=== PATIENT | female | born 1970 | race Caucasian/White ===

== ENCOUNTER 2020-06-16 14:29 | Outpatient (REF) | payer OTHER, SELFPAY | END 2020-06-16 14:30 | disposition home or self-care (01) | LOC: HO.LAB 14:29 | PROVIDERS: Visit Provider Internal Medicine | DX: Z20.822 Contact with and (suspected) exposure to COVID-19 (principal) | CPT/HCPCS: C9803; U0003; U0005 ==

== ENCOUNTER 2022-01-19 14:17 | Emergency (ER) | payer OTHER, SELFPAY ==
--- NOTE | ~2022-01-19 | XR_ITS ---
EXAMINATION: XR chest 2V CLINICAL INFORMATION: Reason for Exam flu like symtpoms c left rib pain when coughing COMPARISON: None TECHNIQUE: 2 views of the chest FINDINGS: Streaky left midlung atelectasis. No pneumothorax or pleural effusion. Normal cardiomediastinal silhouette. No displaced rib fracture however radiographs. Right upper quadrant cholecystectomy clips. XR/XR chest 2V IMPRESSION: 1. Streaky left midlung atelectasis. 2. No displaced rib fracture however radiographs have limited sensitivity and if clinical concern, CT chest could be obtained.
--- NOTE | 2022-01-19 14:58 | ED.URI ---
HPI - URI/Sore Throat General Chief Complaint: Upper Respiratory Symptoms <Joan Soto NP - Last Filed: 01/19/22 15:01> Stated Complaint: cold symptoms <Joan Soto NP - Last Filed: 01/19/22 15:01> Time Seen by Provider: 01/19/22 15:26 <Joan Soto NP - Last Filed: 01/19/22 15:01> Source: patient <RISA Baez Last Filed: 01/19/22 16:42> Mode of arrival: ambulatory <RISA Baez Last Filed: 01/19/22 16:42> Limitations: no limitations <RISA Baez Last Filed: 01/19/22 16:42> History of Present Illness HPI Narrative: 51yoF c PMHx of asthma and hypertension who is Icelandic-speaking presenting to the ER with complaints of subjective fevers, chills, fatigue, malaise, headaches, sore throat, nasal congestion/rhinorrhea, productive cough with yellow/green color sputum with intermittent blood streaked sputum and left-sided rib cage pain only when she is coughing that started on January 16 and continues to worsen. She denies any recent travel or sick contacts that she is aware of. She denies any measured fevers, dizziness, neck pain/stiffness, ear pain, chest pain or shortness of breath, dyspnea on exertion, orthopnea, palpitations, nausea/vomiting/diarrhea constipation, black or bloody stools, lower extremity edema or calf tenderness, rashes, abdominal pain, back pain, flank pain, dysuria, hematuria, abnormal vaginal discharge or any other symptoms complaints or concerns at this time. <RISA Baez - Last Filed: 01/19/22 16:42> MD elicited complaint: fever, cough, sore throat, rhinorrhea and nasal congestion <RISA Baez Last Filed: 01/19/22 16:42> Onset (ago): day(s) (3) <RISA Baez Last Filed: 01/19/22 16:42> Consistency: constant and progressively worsening <RISA Baez Last Filed: 01/19/22 16:42> Severity: moderate <RISA Baez Last Filed: 01/19/22 16:42> Description of mucous: clear, watery, yellow, green and other (Intermittent blood streaked small amount) <RISA Baez Last Filed: 01/19/22 16:42> Able to tolerate fluids by mouth: Yes <RISA Baez Last Filed: 01/19/22 16:42> Exacerbating factors: swallowing and deep breaths <RISA Baez Last Filed: 01/19/22 16:42> Relieving factors: nothing <RISA Baez Last Filed: 01/19/22 16:42> Associated symptoms: fever, chills, myalgias, diaphoresis, headache, rhinorrhea, nasal congestion, sore throat and cough <RISA Baez Last Filed: 01/19/22 16:42> Treatments prior to arrival: other (She has been taking [id number] cough medicine along with Motrin Tylenol) <RISA Baez Last Filed: 01/19/22 16:42> Related Data Home Medications: Previous Rx's Medication Instructions Recorded albuterol sulfate 90 mcg/actuation 1 inh inhalation QID PRN shortness 01/19/22 aerosol inhaler of breath or wheezing #8.5 grams nirmatrelvir 300 mg (150 mg See Rx Instructions PO .COMPLEX 01/19/22 x2)-ritonavir 100 mg tablet,dose #15 ea pack(EUA) (Paxlovid) <GERTRUDE Davies Last Filed: 01/19/22 15:01> Allergies/Adverse Reactions: Allergies Allergy/AdvReac Type Severity Reaction Status Date / Time codeine Allergy Intermediate Unknown Verified 01/19/22 14:59 morphine Allergy Intermediate Unknown Verified 01/19/22 14:59 <Joan Soto NP - Last Filed: 01/19/22 15:01> Review of Systems Review of Systems: Constitutional : + subjective fevers/chills/fatigue/malaise, No Weight loss, No Night Sweats ENT/Mouth : + nasal congestion/rhinorrhea/sore throat, No Hearing loss, No Sinus Pain, No Hoarseness, No Swallowing Difficulty Eyes: No Eye Pain, No Swelling, No Redness, No Foreign Body, No Discharge, No Vision Changes Cardiovascular : No Chest Pain, No SOB, No Dyspnea on Exertion, No Orthopnea, No Edema, No Palpitations Respiratory : + Cough, + Sputum, No Wheezing, No Smoke Exposure, No Dyspnea Gastrointestinal : No Nausea, No Vomiting, No Diarrhea, No Constipation, No abdominal Pain, No Hematochezia, No Melena Genitourinary : no irregular bleeding, No Dysuria, No Urinary Frequency, No Hematuria, No Urinary Incontinence, No Urgency, No Flank Pain, No Urinary Flow Changes, No Hesitancy Musculoskeletal : No joint pain, + Myalgias, No Joint Swelling Skin : No Skin Lesions, No rash Neuro : No Weakness, No Numbness, No Paresthesias, No Loss of Consciousness, No Dizziness, No Headache Psych : No Anxiety/Panic, No Depression, No SI/HI/AH/VH, No Social Issues, Heme/Lymph: No Bruising, No Bleeding,No Lymphadenopathy Endocrine : No Polyuria, No Polydipsia, No Temperature Intolerance <RISA Baez - Last Filed: 01/19/22 16:42> Yes all other systems are reviewed and are negative <RISA Baez - Last Filed: 01/19/22 16:42> [facility] Past Medical History Attestation statement: The following information was validated with the patient. <RISA Baez - Last Filed: 01/19/22 16:42> Source: old records reviewed and nursing notes reviewed <RISA Baez - Last Filed: 01/19/22 16:42> Social History Social History: Social History Advance Directives: No Advance Directives Information Provided: No <Joan Soto NP - Last Filed: 01/19/22 15:01> Physical Exam Vital Signs: Vital Signs: Last Vital Signs Temp 98.4 F 01/19/22 14:59 Pulse 97 01/19/22 14:59 Resp 24 H 01/19/22 14:59 BP 141/86 H 01/19/22 14:59 Pulse Ox 97 01/19/22 14:59 O2 Del Method 01/19/22 14:59 BMI result Body Mass Index 37.2 <Joan Soto NP - Last Filed: 01/19/22 15:01> Vital Signs: Last Vital Signs Temp 98.4 F 01/19/22 14:59 Pulse 97 01/19/22 14:59 Resp 24 H 01/19/22 14:59 BP 141/86 H 01/19/22 14:59 Pulse Ox 97 01/19/22 14:59 O2 Del Method 01/19/22 14:59 BMI result Body Mass Index 37.2 <RISA Baez - Last Filed: 01/19/22 16:42> Course Course Course Narrative: This is a rapid medical exam. Deferred additional HPI, ROS and PE to primary provider. 51 yo female here with headache, cough, fever, body aches x 2 days. Will check flu, covid testing. VSS <Joan Soto NP - Last Filed: 01/19/22 15:01> Reevaluation(s) Reevaluation #1: 51-year-old female with a past medical history of hypertension presenting to the ED with URI symptoms for the past 3 days worse today. Denies recent travel or sick contacts. Is vaccinated to COVID. Not vaccinated to influenza. On exam patient is alert and oriented x3. Not in any acute distress. Lungs clear to auscultation although patient reporting pain to the left rib cage when she is taking a deep breath or coughing. She denies any chest pain. She denies any abdominal pain. Abdomen is soft nontender. No lower extremity edema or calf tenderness noted. She did test positive for COVID. She is negative for influenza. I did order chest x-ray. If chest x-ray is negative patient will be discharged with symptomatic treatment. I did offer her Paxlovid and patient is interested in this medication. I gave her a fact she about Paxlovid and explained to her that she will have up until 5 days to start this medication. There is no medication interactions with the medication she is currently on. Otherwise patient will be discharged with instructions to self isolate per CDC guidelines and to return if any new or worsening symptoms. Patient with family at bedside understand agree this plan. <RISA Baez - Last Filed: 01/19/22 16:42> Time: 16:04 <RISA Baez - Last Filed: 01/19/22 16:42> Reevaluation #2: Chest x-ray revealed streaky left mid lung atelectasis otherwise no other acute processes noted. Therefore at this time will DC home with instructions return if any new worsening symptoms and to self isolate per CDC guidelines. Patient understands agrees with this plan. <RISA Baez - Last Filed: 01/19/22 16:42> Time: 16:41 <RISA Baez - Last Filed: 01/19/22 16:42> MDM - URI/Sore Throat Medical Records Attestation: I reviewed the patient's medical records. <RISA Baez - Last Filed: 01/19/22 16:42> Lab Data Attestation: I reviewed the patient's lab results. <RISA Baez - Last Filed: 01/19/22 16:42> Labs: Lab Results 01/19/22 01/19/22 Range/Units 15:18 15:18 COVID-19 ([facility]ON) Positive A (Negative) COVID-19 Clin Com See Note Influenza Type A ([facility]) Negative (Negative) Influenza Type B (AARON) Negative (Negative) Influenza A & B Note See Note <Joan Soto NP - Last Filed: 01/19/22 15:01> Lab Results 01/19/22 01/19/22 Range/Units 15:18 15:18 COVID-19 (BRANDON) Positive A (Negative) COVID-19 Clin Com See Note Influenza Type A (AARON) Negative (Negative) Influenza Type B (AARON) Negative (Negative) Influenza A & B Note See Note <RISA Baez - Last Filed: 01/19/22 16:42> Imaging Data Chest x-ray: Attestation: I personally reviewed and interpreted this imaging study as follows: <RISA Baez - Last Filed: 01/19/22 16:42> Discharge Plan Discharge Clinical Impression: COVID-19 <Joan Soto NP - Last Filed: 01/19/22 15:01> Patient Disposition: Home, Self-Care <Joan Soto NP - Last Filed: 01/19/22 15:01> Instructions: COVID-19 (Coronavirus Disease 2019) (ED) <Joan Soto NP - Last Filed: 01/19/22 15:01> Prescriptions: New albuterol sulfate 90 mcg/actuation HFA aerosol inhaler 1 inh inhalation QID PRN (Reason: shortness of breath or wheezing) Qty: 8.5 0RF Paxlovid (EUA) 300 mg (150 mg x 2)-100 mg tablets,dose pack See Rx Instructions PO .COMPLEX Qty: 15 0RF Rx Instructions: take TWO 150 mg tablets of nirmatrelvir with ONE 100 mg tablet of ritonavir twice daily for 5 days. Dip 15 pills <Joan Soto NP - Last Filed: 01/19/22 15:01> Referrals: Physician,Unknown J [Primary Care Provider] - 5 days (your pcp) <Joan Soto NP - Last Filed: 01/19/22 15:01> Stand Alone Forms: Work/School Release <Joan Soto NP - Last Filed: 01/19/22 15:01> Print Language: Icelandic <Joan Soto NP - Last Filed: 01/19/22 15:01>
[2022-01-19 14:59] VITALS: BP 141/86; PULSE 97; RESP 24; TEMP 36.9; O2SAT 97; BMI 37.2
[2022-01-19 15:43] LABS: IDNOW Serial# 55D5AD1C; IDNOW Serial# 9DB6401D; Influenza A Negative (Negative); Influenza B2 Negative (Negative)
[2022-01-19 15:44] LABS: COVID-19 Test Positive (Negative)
== END 2022-01-19 16:53 | disposition home or self-care (01) ==
PROVIDERS: Nurse Practitioner Family; Emergency Provider Emergency Medicine
DX: U07.1 COVID-19 (principal); I10 Essential (primary) hypertension; J45.909 Unspecified asthma, uncomplicated
CPT/HCPCS: 71046; 87502; 87635; 99283

== ENCOUNTER 2022-08-08 13:20 | Emergency (ER) | payer OTHER, SELFPAY ==
--- NOTE | ~2022-08-08 | US_ITS ---
EXAMINATION: US ABDOMEN LIMITED CLINICAL INFORMATION: Right upper quadrant pain. Vomiting. Elevated LFT. COMPARISON: None available. TECHNIQUE: Real-time imaging of the right upper quadrant abdominal viscera. FINDINGS: PANCREAS: The head and body of the pancreas is unremarkable. The tail of the pancreas is obscured by bowel gas LIVER: Normal. The liver is normal in size. The liver contour is normal. Parenchymal echogenicity is normal. No focal hepatic lesion. There is no intrahepatic biliary duct dilatation seen. GALLBLADDER: Normal. The gallbladder is physiologically distended without evidence of stones, sludge, polyps, wall thickening or pericholecystic fluid. COMMON BILE DUCT: Normal in caliber measuring 0.7 cm in diameter. RIGHT KIDNEY: Normal. No hydronephrosis. No renal calculi or focal parenchymal lesions. The kidney measures 10.4 cm in maximum dimension. FREE FLUID: None. US/US abdomen limited IMPRESSION: Normal ultrasound right upper quadrant.
--- NOTE | ~2022-08-08 | MR_ITS ---
EXAMINATION: MR BRAIN WITHOUT CONTRAST CLINICAL INFORMATION: dizziness, vomiting, sudden onset 08/07 COMPARISON: None TECHNIQUE: Multiplanar multisequence MR imaging of the brain was obtained without intravenous contrast. FINDINGS: There is no acute infarct on diffusion-weighted imaging. There is no intracranial hemorrhage on iron-sensitive imaging. No extra-axial collection or mass effect/herniation. There are several scattered foci of nonspecific supratentorial white matter T2/FLAIR signal abnormality. No hydrocephalus. The ventricles are normal in morphology and size. The major flow voids at the skull base are preserved. Partially empty sella. The cerebellar tonsils are normally positioned. The craniocervical junction is normal. Marrow signal is within normal limits. The visualized soft tissues are without significant abnormality. No signal abnormality within the paranasal sinuses or within the mastoid air cells. MR/MR head/brain wo con IMPRESSION: No acute infarct or other acute intracranial abnormality
[2022-08-08 13:27] VITALS: BP 183/92; PULSE 74; RESP 18; TEMP 36.7; O2SAT 98; BMI 36.3
--- NOTE | 2022-08-08 13:28 | ED.GENADULT ---
HPI - General Adult General Chief complaint: General Medical Stated complaint: nausea, headache Time Seen by Provider: 08/08/22 14:45 Source: patient and other (partner) Mode of arrival: ambulatory Limitations: no limitations History of Present Illness HPI narrative: 52 yo female with hx of HTN, GERD, repaired heart murmur as a child, presented to [facility] 08/07 at 2am with sudden onset n/v and dizziness with mild epigastric discomfort - treated with fluids, meclizine and had some improvement. Her dizziness seems positional in nature. She did fell a little better had negative CTA of head and neck and was sent home with scopolamine patch - she notes she is still dizzy it is better if she looks straight she has mild headache but persistent n/v and cannot eat. She denies prior falls or neck manipulation preceding this. She has no fevers. This happened one other time 4 months ago and it resolved. Has had a mild cough recently but no other URI symptoms. MD complaint: intermittent dizziness and then nausea and vomiting Onset (ago): day(s) (08/07 2am) Location: head Radiation: non-radiation Severity: moderate Relieving factors: rest Exacerbating factors: movement Associated symptoms: nausea/vomiting and other (headache) Treatments prior to arrival: none Related Data Previous Rx's Medication Instructions Recorded albuterol sulfate 90 mcg/actuation 1 inh inhalation QID PRN shortness 01/19/22 aerosol inhaler of breath or wheezing #8.5 grams nirmatrelvir 300 mg (150 mg See Rx Instructions PO .COMPLEX 01/19/22 x2)-ritonavir 100 mg tablet,dose #15 ea pack (Paxlovid) meclizine 25 mg tablet 25 mg PO TID PRN dizziness #30 tabs 08/08/22 ondansetron 4 mg disintegrating 4 mg PO Q8H PRN nausea and 08/08/22 tablet vomiting #20 tabs Allergies Allergy/AdvReac Type Severity Reaction Status Date / Time codeine Allergy Intermediate Unknown Verified 01/19/22 14:59 morphine Allergy Intermediate Unknown Verified 01/19/22 14:59 Review of Systems Review of Systems: Constitutional : No Fever, No Chills, No Fatigue ENT/Mouth : No sore throat, No Rhinorrhea Eyes: No Eye Pain, No Swelling, No Redness Cardiovascular : No Chest Pain, No SOB, No Dyspnea on Exertion Respiratory : No Cough, No Sputum Gastrointestinal : pos Nausea, pos Vomiting, No Diarrhea, No abdominal Pain Genitourinary : No Dysuria, No Urinary Frequency, No Hematuria, Musculoskeletal : No joint pain, No Myalgias, No Joint Swelling Skin : No Skin Lesions, No rash Neuro : No Weakness, No Numbness, pos Dizziness, positive Headache Psych : No Anxiety/Panic, No Depression All other systems reviewed and are negative [facility] Past Medical History Attestation statement: The following information was validated with the patient. Medical History (Updated 08/08/22 @ 17:54 by Kassie Gresham DO) GERD (gastroesophageal reflux disease) HTN (hypertension) Surgical History (Updated 08/08/22 @ 15:31 by Renae Moser) History of appendectomy Social History Social History (Updated 08/08/22 @ 15:10 by Kassie Gresham DO) Alcohol intake: never Patient Tobacco Use Status: Never used Tobacco Smoked in Last 30 Days: Yes Use of substances other than those prescribed or required for medical reasons: No Advance Directives: No Advance Directives Information Provided: Yes Physical Exam ED Vital Signs: Vital Signs - 24 hr 08/08/22 13:27 08/08/22 15:23 Temperature 98.1 F 98 F Pulse Rate 74 60 Respiratory Rate 18 18 Blood Pressure 183/92 H 152/90 H Pulse Oximetry 98 99 Oxygen Delivery Method Room Air Room Air BMI result Body Mass Index 36.3 Appearance: Alert. Oriented X3. No acute distress. Eyes: Pupils equal, round and reactive to light. no nystagmus ENT: Pharynx normal. Neck: Normal inspection. Neck supple. CVS: Normal heart rate and rhythm. Pulses normal. Respiratory: No respiratory distress. Breath sounds normal. Abdomen: Soft and nontender. Skin: Skin warm and dry. Normal skin color. Normal skin turgor. Extremities: No lower extremity edema. No calf ttp Neuro: Oriented X 3. No motor deficit. No sensory deficit. no drift, notes dizziness is resolved unless she turns her head to the left or right Course Course Course Narrative: This is an RME: Additional HPI, ROS, PE not included below will be deferred to primary provider. 58-[id number]-[id number]-speaking female, hx of asthma and hypertension, presenting to the ER for evaluation of cold sweats, nausea, and vomiting. She is unable to tolerate PO. Was seen at [facility] for these symptoms and was told that she was dehydrated. Plan: Basic bloodwork, attempt to get records from [facility] Reevaluation(s) Reevaluation #1: MRI for brain to rule out posterior stroke MRI labs EKG all negative stable for DC Medications Administered Discontinued Medications Generic Name Dose Route Start Last Admin Trade Name Charisse PRN Reason Stop Dose Admin Lorazepam 1 mg 08/08/22 16:24 08/08/22 16:45 Lorazepam 2 Mg/Ml Vial IVPUSH 08/08/22 16:25 1 mg STAT STA Administration Meclizine HCl 25 mg 08/08/22 14:58 08/08/22 15:21 Meclizine Hcl 25 Mg Tablet PO 08/08/22 14:59 25 mg ONCE ONE Administration Ondansetron HCl 4 mg 08/08/22 14:58 08/08/22 15:21 Ondansetron Odt 4 Mg Tab.Rapdis TRANSLINGU 08/08/22 14:59 4 mg ONCE ONE Administration Medical Decision Making Medical Decision Making [facility] Narrative: 52 yo female with hx of HTN, GERD here with c/o persistent dizziness that is positional no other neuro findings does have n/v was sent home with scopolamine which didn't help. At this time she has no CP/SOB but has some mild epigsatric and RUQ pain - labs and US ordered. Her symptoms seem more peripheral given they are worse with head turning and not present looking straight ahead - she has no nystagmus though - but turning head reproduces symptoms, sitting still she has no dizziness - seems more vertiginous compared to posterior stroke. Differential Diagnosis Differential Diagnoses: The differential diagnosis associated with the presentation includes vertigo, biliary colic, dehydration, posterior stroke - recent negative CTA head and neck Lab Data [facility] Lab Attestation statement: I reviewed the patient's lab results. 08/08/22 13:54 08/08/22 13:54 Labs: Lab Results 08/08/22 08/08/22 08/08/22 Range/Units 13:53 13:54 13:54 WBC 7.8 (4.8-10.8) X10*3/uL RBC 4.50 (4.20-5.50) X10*6/uL Hgb 13.8 (12.0-16.0) g/dl Hct 42.6 (37.0-47.0) % MCV 94.7 (80.0-98.0) fL MCH 30.7 (27.0-33.0) pg MCHC 32.4 (31.0-35.0) g/dl RDW 14.3 (11.0-16.0) % Plt Count 264 (160-400) X10*3/uL MPV 10.4 (9.4-12.3) fL Immature Gran % (Auto) Cancelled Neut % (Auto) Cancelled Lymph % (Auto) Cancelled [place] % (Auto) Cancelled Eos % (Auto) Cancelled Baso % (Auto) Cancelled Lymph # (Auto) Cancelled [place] # (Auto) Cancelled Eos # (Auto) Cancelled Baso # (Auto) Cancelled Abs Immat Gran (auto) Cancelled Absolute Neuts (auto) Cancelled Absolute Nucleated RBC 0.000 (0.0-0.012) X10*3/uL Nucleated RBC % (auto) 0.0 (0.0-0.2) /100WBC Neutrophils % (Manual) 80 H (45-73) % Band Neutrophils % 0 L (3-5) % Lymphocytes % (Manual) 20 (20-40) % Abs Neuts (Manual) 6.2 (2.0-8.3) X10*3/uL Lymphocytes # (Manual) 1.6 (1.2-4.9) X10*3/uL Platelet Estimate NORMAL (NORMAL) Plt Morphology Comment NORMAL RBC Morphology NORMAL Sodium (135-145) mmol/L Potassium (3.3-5.1) mmol/L Chloride (96-108) mmol/L Carbon Dioxide (22-29) mmol/L Anion Gap (12-20) BUN (9-16) mg/dL Creatinine (0.5-1.4) mg/dL Estim Creat Clear Calc Estimated GFR Random Glucose (60-115) mg/dL Calcium (8.4-10.2) mg/dL Magnesium 1.9 (1.6-2.6) mg/dL Total Bilirubin 0.6 (0.0-1.0) mg/dL Direct Bilirubin 0.2 (0.0-0.5) mg/dL AST 25 (5-31) U/L ALT 41 H (0-31) U/L Alkaline Phosphatase 163 H (39-117) U/L Troponin I High Sens (<3.5-17.0) ng/L Total Protein 7.7 (6.5-8.0) g/dL Albumin 4.5 (3.5-5.0) g/dL Lipase 26 (8-78) U/L COVID-19 ([facility]ON) Negative (Negative) COVID-19 Clin Com See Note 08/08/22 08/08/22 Range/Units 13:54 13:54 WBC (4.8-10.8) X10*3/uL RBC (4.20-5.50) X10*6/uL Hgb (12.0-16.0) g/dl Hct (37.0-47.0) % MCV (80.0-98.0) fL MCH (27.0-33.0) pg MCHC (31.0-35.0) g/dl RDW (11.0-16.0) % Plt Count (160-400) X10*3/uL MPV (9.4-12.3) fL Immature Gran % (Auto) Neut % (Auto) Lymph % (Auto) [place] % (Auto) Eos % (Auto) Baso % (Auto) Lymph # (Auto) [place] # (Auto) Eos # (Auto) Baso # (Auto) Abs Immat Gran (auto) Absolute Neuts (auto) Absolute Nucleated RBC (0.0-0.012) X10*3/uL Nucleated RBC % (auto) (0.0-0.2) /100WBC Neutrophils % (Manual) (45-73) % Band Neutrophils % (3-5) % Lymphocytes % (Manual) (20-40) % Abs Neuts (Manual) (2.0-8.3) X10*3/uL Lymphocytes # (Manual) (1.2-4.9) X10*3/uL Platelet Estimate (NORMAL) Plt Morphology Comment RBC Morphology Sodium 141 (135-145) mmol/L Potassium 4.0 (3.3-5.1) mmol/L Chloride 105 (96-108) mmol/L Carbon Dioxide 30 H (22-29) mmol/L Anion Gap 10 L (12-20) BUN 12 (9-16) mg/dL Creatinine 0.67 (0.5-1.4) mg/dL Estim Creat Clear Calc 106.4 Estimated GFR > 60 Random Glucose 104 (60-115) mg/dL Calcium 9.8 (8.4-10.2) mg/dL Magnesium (1.6-2.6) mg/dL Total Bilirubin (0.0-1.0) mg/dL Direct Bilirubin (0.0-0.5) mg/dL AST (5-31) U/L ALT (0-31) U/L Alkaline Phosphatase (39-117) U/L Troponin I High Sens 6.8 (<3.5-17.0) ng/L Total Protein (6.5-8.0) g/dL Albumin (3.5-5.0) g/dL Lipase (8-78) U/L COVID-19 ([facility]ON) (Negative) COVID-19 Clin Com Independent Interpretation I performed an independent interpretation of an: EKG, Ultrasound (normal appearing US ) and CT Scan (brain MRI - negative no acute findings) Interpretation: Rate: 59 Rhythm: sinus bradycardia [place]: normal Normal P waves. Normal VENT[place]A. Normal QRS complex. ST T wave : normal no OSWALD, no OSWALD depression qTC: normal prior studies: no acute ischemia The study has been interpreted contemporaneously by me. . Radiology Impression Discussion of test interpretation with radiology: I have reviewed the radiologist's reading. Independent Historian Clinical information obtained from an independent historian. History obtained from or confirmed by: Spouse External Record Review External record reviewed: Outpatient record ([facility] ED records and CTA reviewed) Prescription Management I considered prescription management with: Other (zofran and meclizine) Discharge Plan Discharge Clinical Impression: Dizziness Patient Disposition: Home, Self-Care Instructions: Dizziness (ED) Additional Instructions: return to ED for any worsening symptoms or concerns ultrasound normal, labs reassuring, EKG normal, MRI of brain no stroke at this time suspect vertigo please call your doctor about getting physical therapy for your dizziness there is treatment return for worsening symptoms, chest pain, diff breathing, numbness, weakness or any other concerns. Prescriptions: New meclizine 25 mg tablet 25 mg PO TID PRN (Reason: dizziness) Qty: 30 0RF ondansetron 4 mg tablet,disintegrating 4 mg PO Q8H PRN (Reason: nausea and vomiting) Qty: 20 0RF No Action albuterol sulfate 90 mcg/actuation HFA aerosol inhaler 1 inh inhalation QID PRN (Reason: shortness of breath or wheezing) Qty: 8.5 0RF Paxlovid 300 mg (150 mg x 2)-100 mg tablets,dose pack See Rx Instructions PO .COMPLEX Qty: 15 0RF Rx Instructions: take TWO 150 mg tablets of nirmatrelvir with ONE 100 mg tablet of ritonavir twice daily for 5 days. Dip 15 pills
[2022-08-08 14:05] LABS: Hematocrit 42.6 % (37.0-47.0); Hemoglobin 13.8 g/dl (12.0-16.0); Mean Corpuscular HGB Conc 32.4 g/dl (31.0-35.0); Mean Corpuscular Hemoglobin 30.7 pg (27.0-33.0); Mean Corpuscular Volume 94.7 fL (80.0-98.0); Mean Platelet Volume 10.4 fL (9.4-12.3); Platelet Count 264 X10*3/uL (160-400); Red Cell Distribution Width 14.3 % (11.0-16.0)
[2022-08-08 14:06] LABS: WBC ABN SCTR FOR CBC 1
[2022-08-08 14:28] LABS: Band Neutrophils Percent 0 % (3-5); Lymphocytes Percent Manual 20 % (20-40); Neutrophils Percent Manual 80 % (45-73); Platelet Estimate NORMAL (NORMAL); Platelet Morphology Comment NORMAL; RBC Morphology NORMAL
[2022-08-08 14:29] LABS: Lymphocytes Absolute Manual 1.6 X10*3/uL (1.2-4.9); Neutrophils Absolute Manual 6.2 X10*3/uL (2.0-8.3); White Blood Count 7.8 X10*3/uL (4.8-10.8)
[2022-08-08 14:33] LABS: Anion Gap 10 (12-20); Blood Urea Nitrogen 12 mg/dL (9-16); Calcium 9.8 mg/dL (8.4-10.2); Carbon Dioxide 30 mmol/L (22-29); Chloride 105 mmol/L (96-108); Creatinine Clr Calc Pharmacy 106.4; Estimated Glomerular Filt Rate > 60; Glucose Random 104 mg/dL (60-115); Sodium 141 mmol/L (135-145)
[2022-08-08 14:34] LABS: Alanine Aminotransferase 41 U/L (0-31); Albumin Level 4.5 g/dL (3.5-5.0); Alkaline Phosphatase 163 U/L (39-117); Aspartate Amino Transferase 25 U/L (5-31); Bilirubin Direct 0.2 mg/dL (0.0-0.5); Bilirubin Total 0.6 mg/dL (0.0-1.0); Lipase 26 U/L (8-78); Magnesium 1.9 mg/dL (1.6-2.6); Total Protein 7.7 g/dL (6.5-8.0)
--- NOTE | 2022-08-08 14:58 | ECG_ITS ---
Test Reason : NAUSEA Blood Pressure : / mmHG Vent. Rate : 059 BPM Atrial Rate : 059 BPM P-R Int : 188 ms QRS Dur : 074 ms QT Int : 430 ms P-R-T Axes : 022 039 041 degrees QTc Int : 425 ms Sinus bradycardia Otherwise normal ECG No previous ECGs available Referred By: Kassie Gresham Electronically Signed By:NICK LUNA
[2022-08-08 15:03] LABS: COVID-19 Test Negative (Negative); IDNOW Serial# BCCEAD1C
[2022-08-08] MEDS: Ondansetron ODT 4 MG TAB.RAPDIS TRANSLINGU (15:21)
[2022-08-08] MEDS: Meclizine HCl 25 MG TABLET PO (15:21)
[2022-08-08 15:23] VITALS: BP 152/90; PULSE 60; RESP 18; TEMP 36.6; O2SAT 99
[2022-08-08 16:20] LABS: Troponin-I High Sensitivity 6.8 ng/L (<3.5-17.0)
--- NOTE | 2022-08-08 16:28 | PC.NURSE ---
MRI screening form completed and faxed, pt requesting medication to help with anxiety prior to scan, provider notified.
[2022-08-08] MEDS: LORazepam 2 MG/ML VIAL 1 MG IVPUSH (16:45)
--- NOTE | 2022-08-08 17:24 | PC.NURSE ---
pt to MRI s/p receiving ativan iv- 22g placed L forearm, CDI- tolerated well. for anxiety pre-med as pt stated she feels claustrophobic for enclosed test spaces. aox4.
== END 2022-08-08 18:17 | disposition home or self-care (01) ==
PROVIDERS: Physician Assistant Medical; Emergency Provider Emergency Medicine
DX: R42 Dizziness and giddiness (principal); R11.2 Nausea with vomiting, unspecified; R00.1 Bradycardia, unspecified; Z20.822 Contact with and (suspected) exposure to COVID-19; I10 Essential (primary) hypertension
CPT/HCPCS: 36415; 70551; 76705; 80048; 80076; 83690; 83735; 84484; 85007; 85027; 87635; 93005; 96374; 99284; 99285; J2060

== ENCOUNTER 2023-11-26 18:27 | Emergency (ER) | payer OTHER, SELFPAY ==
--- NOTE | ~2023-11-26 | XR_ITS ---
EXAMINATION: XR ABDOMEN KUB CLINICAL INDICATION: Abdominal pain COMPARISON: None available. TECHNIQUE: AP view of the abdomen. FINDINGS: Hepatomegaly. Cholecystectomy clips in the right upper quadrant. Moderate left colonic stool burden. Nonobstructive bowel gas pattern. Amorphous calcifications in the right lower quadrant, likely part of stool. No large pneumoperitoneum. XR/XR KUB IMPRESSION: Hepatomegaly. Nonobstructive bowel gas pattern. Electronically signed by: Brandt Lau DO 11/27/2023 12:16 AM EDT
[2023-11-26 18:49] VITALS: BP 154/80; PULSE 83; RESP 16; TEMP 36.1; O2SAT 99; BMI 42.1
--- NOTE | 2023-11-26 19:17 | ED.GENADULT ---
HPI - General Adult General Chief complaint: Urogenital-Female Stated complaint: abd pain Time Seen by Provider: 11/26/23 22:41 Source: patient Limitations: no limitations History of Present Illness ED Provider: Mary Álvarez PA-C HPI narrative: 53-year-old female with a history of morbid obesity, vertigo and asthma presents with abdominal pain x3 days. Patient was seen at [facility] for same distribution of pain, she was told she may be passing a kidney stone. The pain is over left flank and wraps around to left mid abdomen. Patient states her symptoms have progressed, she now has abdominal distention and constipation. Patient had a very minimal bowel movement today, her stool was hard. Denies nausea, vomiting, inability to pass flatus or fever. Denies dysuria or hematuria. Related Data Previous Rx's ?Medication ?Instructions ?Recorded albuterol sulfate 90 mcg/actuation 1 inh inhalation QID PRN shortness 01/19/22 aerosol inhaler of breath or wheezing #8.5 grams nirmatrelvir 300 mg (150 mg See Rx Instructions PO .COMPLEX 01/19/22 x2)-ritonavir 100 mg tablet,dose #15 ea pack (Paxlovid) meclizine 25 mg tablet 25 mg PO TID PRN dizziness #30 tabs 08/08/22 ondansetron 4 mg disintegrating 4 mg PO Q8H PRN nausea and 08/08/22 tablet vomiting #20 tabs metoclopramide HCl 10 mg tablet 10 mg PO Q6H PRN nausea and 11/26/23 (Reglan) vomiting #20 tabs Allergies Allergy/AdvReac Type Severity Reaction Status Date / Time codeine Allergy Intermediate Unknown Verified 11/26/23 18:55 morphine Allergy Intermediate Unknown Verified 11/26/23 18:55 Review of Systems Review of Systems: Yes all other systems are reviewed and are negative Constitutional: Constitutional: Denies fever(s) Cardiovascular: Cardiovascular: Denies chest pain and Denies dyspnea Respiratory: Respiratory: Denies dyspnea Gastrointestinal: Gastrointestinal: Reports abdominal pain, Reports constipation, Denies diarrhea, Denies nausea and Denies vomiting Genitourinary: Genitourinary: Denies dysuria [facility] Past Medical History Attestation statement: The following information was validated with the patient. Medical History (Updated 11/27/23 @ 00:03 by Background Daemon) GERD (gastroesophageal reflux disease) HTN (hypertension) Surgical History (Updated 08/08/22 @ 15:31 by Renae Moser) History of appendectomy Social History Social History (Updated 08/08/22 @ 15:10 by Kassie Gresham DO) Alcohol intake: never Patient Tobacco Use Status: Never used Tobacco Smoked in Last 30 Days: No Use of substances other than those prescribed or required for medical reasons: No Any prior treatment program specific to substance use: No Advance Directives: No Advance Directives Information Provided: No Patient : No Physical Exam ED Vital Signs: Vital Signs - 24 hr 11/26/23 18:49 11/26/23 22:47 11/26/23 23:54 Temperature 96.9 F 98.2 F 98.2 F Pulse Rate 83 69 69 Respiratory Rate 16 19 19 Blood Pressure 154/80 H 140/73 H 140/73 H Pulse Oximetry 99 98 98 Oxygen Delivery Method Room Air Room Air Room Air BMI result Body Mass Index 42.1 Const Other: Alert, appears older than stated age Orientation/consciousness: patient oriented x3 Resp Effort & Inspection: normal respiratory effort Cardio Other: Normal peripheral perfusion GI Other: Abdomen is soft, obese, nondistended, mild tenderness over left mid to lower abdomen without guarding Skin Other: Warm dry no rash Neuro General: patient oriented x3, no focal motor deficits and CN's II-XI intact bilaterally Psych Other: Calm cooperative Course Course Course Narrative: RME: DOne by Francoise Jaimes. 53 yold female presents to the ED For left flank pain and LLQ abdominal pain. seen at [facility] thought she had kidneys stones as per CT scan. left flank pain. Positive for LLQ tenderndeness on palpation. labs ordered. blood in stool Medications Administered Discontinued Medications Generic Name Dose Route Start Last Admin Trade Name Freq PRN Reason Stop Dose Admin Metoclopramide HCl 10 mg 11/26/23 22:46 11/26/23 23:12 Metoclopramide Hcl 10 Mg/2 Ml Vial IM 11/26/23 22:47 10 mg ONCE ONE Administration Medical Decision Making Medical Decision Making MDM Narrative: 53-year-old female with a history of morbid obesity, vertigo and asthma presents with abdominal pain x3 days. Patient was seen at [facility] for same distribution of pain, she was told she may be passing a kidney stone. The pain is over left flank and wraps around to left mid abdomen. Patient states her symptoms have progressed, she now has abdominal distention and constipation. Patient had a very minimal bowel movement today, her stool was hard. Denies nausea, vomiting, inability to pass flatus or fever. Denies dysuria or hematuria. Problem: Morbid obesity History: Per patient I have considered the following differential diagnoses: Pancreatitis, diverticulitis, renal colic, constipation, bowel obstruction Plan: Screening labs and UA were obtained from triage, everything unremarkable. I do believe the patient is constipated, she does not have obstructive symptoms, we will obtain a KUB. We will give Reglan. Thought about renal colic, however she has no symptoms no history of kidney stones, and she did not have a definitive stone per CT scan from [facility]. Given left-sided symptoms I did think about pancreatitis, however she is not actively vomiting, her pain has not felt well to the left upper quadrant, her lipase is negative. Thought about diverticulitis, however again pain not focal to left lower quadrant, she has no active GI symptoms. I have independently reviewed the following tests: Labs: No leukocytosis, not anemic, no electrolyte abnormality, urine not infected not passing hematuria Lab Data 11/26/23 19:34 11/26/23 19:34 Labs: Lab Results 11/26/23 Range/Units 19:34 WBC 5.9 (4.8-10.8) X10*3/uL RBC 4.24 (4.20-5.50) X10*6/uL Hgb 13.3 (12.0-16.0) g/dl Hct 39.1 (37.0-47.0) % MCV 92.2 (80.0-98.0) fL MCH 31.4 (27.0-33.0) pg MCHC 34.0 (31.0-35.0) g/dl RDW 13.9 (11.0-16.0) % Plt Count 268 (160-400) X10*3/uL MPV 10.2 (9.4-12.3) fL Immature Gran % (Auto) 0.2 (0.0-0.4) % Neut % (Auto) 54.6 (45-73) % Lymph % (Auto) 33.9 (20-40) % [place] % (Auto) 8.6 (2-11) % Eos % (Auto) 2.4 (0-4) % Baso % (Auto) 0.3 (0-2) % Lymph # (Auto) 2.0 (1.2-4.9) X10*3/uL [place] # (Auto) 0.5 (0.1-1.2) X10*3/uL Eos # (Auto) 0.1 (0.0-0.4) X10*3/uL Baso # (Auto) 0.0 (0.0-0.2) X10*3/uL Abs Immat Gran (auto) 0.01 (0.00-0.03) X10*3/uL Absolute Neuts (auto) 3.2 (2.0-8.3) x10*3/uL Absolute Nucleated RBC 0.000 (0.0-0.012) X10*3/uL Nucleated RBC % (auto) 0.0 (0.0-0.2) /100WBC Sodium 141 (135-145) mmol/L Potassium 4.1 (3.3-5.1) mmol/L Chloride 107 (96-108) mmol/L Carbon Dioxide 25 (22-29) mmol/L Anion Gap 13 (12-20) BUN 15 (9-16) mg/dL Creatinine 0.81 (0.5-1.4) mg/dL Estim Creat Clear Calc 91.0 Estimated GFR > 60 Random Glucose 122 H (60-115) mg/dL Calcium 9.6 (8.4-10.2) mg/dL Total Bilirubin 0.3 (0.0-1.0) mg/dL AST 23 (5-31) U/L ALT 26 (0-31) U/L Alkaline Phosphatase 145 H (39-117) U/L Total Protein 7.1 (6.5-8.0) g/dL Albumin 4.2 (3.5-5.0) g/dL Lipase 28 (8-78) U/L Beta HCG, Quant 4 mIU/mL Urine Color Yellow Urine Appearance Clear Urine pH 6.0 (5.0-9.0) Ur Specific [place] 1.015 (1.005-1.025) Urine Protein Negative (Neg-Trace) mg/dL Urine Glucose (UA) Negative (Negative) mg/dL Urine Ketones Negative (Negative) mg/dL Urine Blood Negative (Negative) Urine Nitrite Negative (Negative) Ur Leukocyte Esterase Trace H (Negative) Urine RBC 0-2 (0-2) /HPF Urine WBC 0-5 (0-5) /HPF Ur Squamous Epith Cells 0-2 (0-2) /HPF Urine Bacteria None Seen (None Seen) Hyaline Casts 0-2 (0-2) /LPF Urine Test NEGATIVE (NEGATIVE) Discharge Plan Discharge Clinical Impression: Constipation Patient Disposition: Home, Self-Care Instructions: Constipation (ED) Additional Instructions: You were found to be significantly constipated. All of your labs were normal. You need to implement in aggressive bowel regimen to help clear your current stool burden. Start using [id number] Colace, this is a stool softener, twice a day. You also need to start using MiraLax, mix it per package instructions, and drank the solution every hour until you begin having multiple large volume bowel movements. Once you have cleared your current stool burden, you need to stay on some form of a bowel regimen to help prevent further episodes of constipation. Use the metoclopramide, or Reglan, this will help your gut motility. It is also a nausea medicine. Call your primary care provider for follow up as needed. Prescriptions: New metoclopramide HCl [Reglan] 10 mg tablet 10 mg PO Q6H PRN (Reason: nausea and vomiting) Qty: 20 0RF No Action albuterol sulfate 90 mcg/actuation HFA aerosol inhaler 1 inh inhalation QID PRN (Reason: shortness of breath or wheezing) Qty: 8.5 0RF Paxlovid 300 mg (150 mg x 2)-100 mg tablets,dose pack See Rx Instructions PO .COMPLEX Qty: 15 0RF Rx Instructions: take TWO 150 mg tablets of nirmatrelvir with ONE 100 mg tablet of ritonavir twice daily for 5 days. Dip 15 pills meclizine 25 mg tablet 25 mg PO TID PRN (Reason: dizziness) Qty: 30 0RF ondansetron 4 mg tablet,disintegrating 4 mg PO Q8H PRN (Reason: nausea and vomiting) Qty: 20 0RF Interventions: ED Discharge Assessment Last Done: 11/26/23 23:54 Discharge Date/Time: 11/26/23 23:38 Print Language: Korean
[2023-11-26 19:38] LABS: MANUAL DIFF FLAG NO
[2023-11-26 19:40] LABS: Appearance Urine Clear; Color Urine Yellow; Glucose Urine UA Negative (Negative); Leukocyte Esterase Urine Trace (Negative); Nitrite Urine Negative (Negative); Specific Gravity - Urine 1.015 (1.005-1.025); UMIC TRIGGER UACC YES; Urine Blood Negative (Negative); Urine Ketones Negative (Negative); Urine Protein Negative (Neg-Trace)
[2023-11-26 19:41] LABS: Basophils Percent Auto 0.3 % (0-2); Eosinophils Absolute Auto 0.1 X10*3/uL (0.0-0.4); Eosinophils Percent Auto 2.4 % (0-4); Hematocrit 39.1 % (37.0-47.0); Hemoglobin 13.3 g/dl (12.0-16.0); Imm Gran Abs Auto 0.01 X10*3/uL (0.00-0.03); Imm Gran Pct Auto 0.2 % (0.0-0.4); Lymphocytes Percent Auto 33.9 % (20-40); Mean Corpuscular Hemoglobin 31.4 pg (27.0-33.0); Mean Corpuscular Volume 92.2 fL (80.0-98.0); Mean Platelet Volume 10.2 fL (9.4-12.3); Monocytes Absolute Auto 0.5 X10*3/uL (0.1-1.2); Monocytes Percent Auto 8.6 % (2-11); Neutrophils Absolute Auto 3.2 x10*3/uL (2.0-8.3); Neutrophils Percent Auto 54.6 % (45-73); Platelet Count 268 X10*3/uL (160-400); Red Blood Count 4.24 X10*6/uL (4.20-5.50); Red Cell Distribution Width 13.9 % (11.0-16.0); White Blood Count 5.9 X10*3/uL (4.8-10.8)
[2023-11-26 19:42] LABS: UPreg QC Valid YES; Urine Pregnancy NEGATIVE (NEGATIVE)
[2023-11-26 19:45] LABS: Bacteria Urine None Seen (None Seen); Hyaline Casts Urine 0-2 /LPF (0-2); RBC Urine 0-2 /HPF (0-2); Squamous Epithelial Cell Urine 0-2 /HPF (0-2); WBC Urine 0-5 /HPF (0-5)
[2023-11-26 20:16] LABS: Alanine Aminotransferase 26 U/L (0-31); Albumin Level 4.2 g/dL (3.5-5.0); Alkaline Phosphatase 145 U/L (39-117); Anion Gap 13 (12-20); Aspartate Amino Transferase 23 U/L (5-31); Bilirubin Total 0.3 mg/dL (0.0-1.0); Blood Urea Nitrogen 15 mg/dL (9-16); Calcium 9.6 mg/dL (8.4-10.2); Carbon Dioxide 25 mmol/L (22-29); Chloride 107 mmol/L (96-108); Glucose Random 122 mg/dL (60-115); Lipase 28 U/L (8-78); Potassium 4.1 mmol/L (3.3-5.1); Sodium 141 mmol/L (135-145); Total Protein 7.1 g/dL (6.5-8.0)
[2023-11-26 20:17] LABS: HCG Quantitative 4 mIU/mL
[2023-11-26 20:57] LABS: Estimated Glomerular Filt Rate > 60
[2023-11-26 22:47] VITALS: BP 140/73; PULSE 69; RESP 19; TEMP 36.8; O2SAT 98
[2023-11-26] MEDS: Metoclopramide HCl 10 MG/2 ML VIAL IM (23:12)
[2023-11-26 23:54] VITALS: BP 140/73; PULSE 69; RESP 19; TEMP 36.8; O2SAT 98
== END 2023-11-26 23:38 | disposition home or self-care (01) ==
PROVIDERS: Physician Assistant; Emergency Provider Emergency Medicine
DX: K59.00 Constipation, unspecified (principal); R10.9 Unspecified abdominal pain; I10 Essential (primary) hypertension; K21.9 Gastro-esophageal reflux disease without esophagitis; Z79.899 Other long term (current) drug therapy
CPT/HCPCS: 36415; 74018; 80053; 81001; 81025; 83690; 84702; 85025; 96372; 99284; J2765

== ENCOUNTER 2025-01-27 13:28 | Emergency (ER) | payer OTHER, SELFPAY ==
--- OUTSIDE RECORDS SUMMARY | 2023-01-22 03:45 | XMS_ITS | Continuity of Care Document ---
Author Organization [facility] Address [address] [place] [address] [address] [place] [id number] Phone Care Team Providers Care Lab Engineer Name Role Phone Shay BRYANT FACS RVT Shelia TUTTLE Unavailable Unavailable Procedures Procedure Date Offic/outpt E&m Estab 5 Min Trial - Tele medicine Duplex Scan-extrem Veins; Comp Offic Cons New/estab Mod-hi 60 Advance Directives Directive Yes / No Effective Date File Name No Information Encounters Encounter Description Practice Location Reason(s) For Visit Diagnoses Date Provider Providers Copied on Encounter Offic/outpt E&m Estab 5 Min Trial - Telemedicine [facility], [address] [place] [address] [address], [place], [id number], [place] tel:[phone] CV[place] - [place] Localized edemaCramp and spasmRestless legs syndromeVenous insufficiency (chronic) (peripheral)Es sential (primary) hypertensionLy mphedema, not elsewhere classifiedPrur itus, unspecifiedHer editary lymphedema 3 Shay BRYANT FACS RVT MARR[place]. [address] [facility], [facility] [address], [place], [address], [place]. tel:[phone] Referring Provider: Venus Ochoa MD B, [address] [facility], [place], [address]. tel:[phone] [facility], [address] [place] [address] [address], [place], [id number], tel:[phone] CV[facility] - [place] Varicose veins of bilateral lower extremities with pain Sep- 3 Shay BRYANT FACS [facility] MARRY [place]. [address] [facility], [address], [place], [address], [place]. tel:[phone] Referring Provider: Venus Watkins, [address], [place], [address]. tel:[phone] Offic Cons New/estab Mod-hi 60 [facility], [address] [facility] [address] [facility] [address], [place], [id number], tel:[phone] CV[facility] [place] Varicose veins of bi low extrem w oth complicationsP ain in right lower legPain in left lower legLocalized edemaRestless legs syndromeEssent ial (primary) hypertensionLy mphedema, not elsewhere classifiedPrur itus, unspecifiedHer editary lymphedemaCram p and spasm Sep- 3 Shay BRYANT FACS T MARRY [place]. [address] [facility], [facility] [address], [place], [address], [place]. tel:[phone] Referring Provider: Venus Watkins, [address], [place], [address]. tel:[phone] Family History Family Member Type Diagnosis Age At Onset No Information Payers Payer name Insurance type Covered constitution party ID Authormarlena carrillomaddie(s) [facility] [place] [place] CI [id number] Social History Type Description Quantity Date Captured Comments Alcohol Use Details Unknown Caffeine Use Details Unknown Tobacco Use Status No Information Smoking Status Never Smoker Non-Smoking Tobacco Use Details : No Details Available : No Details Available Sex Female Vital Signs Date / Time: Height Weight BMI Pulse Rate Blood Pressure Temperature Respiratory Rate Body Surface Area Head Circumference Head Circ. Percentile Wt./Abram. Percentile BMI percentile Pulse Ox Inhaled Ox 108.410 kg (239.00 lbs) 42.4 0 kg/m eter (2) Chief Complaint And Reason For Visit No Information Reason For Referral Reason For Referral No Information Plan Of Treatment Date Type Action Status Goal Diet education completed Referral Ordered: Weight management: Referral to physician timeframe: 3 Months (related to Body mass index (BMI) 40.0-44.9, adult) ordered History Of Present Illness Encounter Date Complaint History Of Prese nt Illness No Information Functional Status Date Functional Assessmen t No Information Instructions Date Instruction Additional Infor mation Patient education booklet given Related to Localized edema Pre and post instruc tions reviewed and provided Related to Localized edema Pre and post instruc tions reviewed and provided Related to Varicose veins of bi low extrem w oth complications Patient education booklet given Related to Varicose veins of bi low extrem w oth complications Lifestyle education Related to B carolyn mass index (BMI) 40.0-44.9, adult Giving Encouragement to exercise Related to Body mass index (BMI) 40.0-44.9, adult Diet education Related to Body mass index (BMI) 40.0-44.9, adult Assessments Type Assessment Date No Information Patient Care Teams Name Effective Dates (start - stop) Status Members No Information
--- NOTE | ~2025-01-27 | XR_ITS ---
EXAMINATION: XR CHEST CLINICAL INFORMATION: cough, congestion COMPARISON: 01/19/2022. TECHNIQUE: 2 views of the chest were obtained. FINDINGS: Borderline cardiac enlargement. Mediastinal and hilar contours appear normal. The lungs are clear bilaterally. There is no pneumothorax or pleural effusion. There is no focal osseous or soft tissue abnormality. There are cholecystectomy clips. XR/XR chest 2V IMPRESSION: No active pulmonary disease. Electronically signed by: Hugh Nino MD 01/27/2025 03:16 PM CORINNA PURI
[2025-01-27 14:13] VITALS: BP 136/70; PULSE 82; RESP 18; TEMP 36.5; O2SAT 99; BMI 41.9
--- NOTE | 2025-01-27 14:16 | ED_ITS ---
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 Patient states that over the last 4 days she has had a cough, congestion, and a headache. Patient denies any other complaints at this time. Related Data Previous Rx's ?Medication ?Instructions ?Recorded albuterol sulfate 90 mcg/actuation 1 inh inhalation QI D PRN shortness 01/19/22 aerosol inhaler of breath or wheezing #8.5 g rukhsana nirmatrelvir 300 mg (150 mg See Rx Instructions PO .CO MPLEX 01/19/22 x2)-ritonavir 100 mg tablet,dose #15 ea pack (Paxlovid) meclizine 25 mg tablet 25 mg PO TID PRN dizziness # 30 tabs 08/08/22 ondansetron 4 mg disintegrating 4 mg PO Q8H PRN nausea and 08/08/22 tablet vomiting #20 tabs metoclopramide HCl 10 mg tablet 10 mg PO Q6H PRN nause a and 11/26/23 (Reglan) vomiting #20 tabs Allergies Allergy/AdvReac Type Severity Reaction Status Date / Time codeine Allergy Intermediate Unknown Verified 01/27/25 14:14 morphine Allergy Intermediate Unknown Verified 01/27/25 14:14 Review of Systems Constitutional: Constitutional: Reports as per HPI Eyes: Eyes: Reports as per HPI ENT: Reports as per HPI Cardiovascular: Cardiovascular: Reports as per HPI Respiratory: Respiratory: Reports as per HPI Gastrointestinal: Gastrointestinal: Reports as per HPI Genitourinary: Genitourinary: Reports as per HPI Musculoskeletal: Musculoskeletal: Reports as per HPI Integumentary/Breasts: Skin/Breast: Reports as per HPI Neurologic: Reports as per HPI Psychiatric: Psychiatric: Reports as per HPI Endocrine: Endocrine: Reports as per HPI Hematologic/Lymphatic: Hematologic/Lymphatic: Reports as per HPI Allergic/Immunologic: Allergic/Immunologic: Reports as per HPI [facility] Past Medical History Attestation statement: The following information was validated with the patient. (all information validated with the patient's ) Source: old records reviewed, obtained from family (patient's provided additional history and confirmed the history provided by the patient. ) and nursing notes reviewed Medical History GERD (gastroesophageal reflux disease) HTN (hypertension) Surgical History History of appendectomy Social History Social History Alcohol intake: never Patient Tobacco Use Status: Never used Tobacco Advance Directives: No Advance Directives Information Provided: No Physical Exam Vital Signs: Vital Signs: Last Vital Signs Temp 97.7 F 01/27/25 16:37 Pulse 82 01/27/25 16:37 Resp 18 01/27/25 16:37 BP 136/70 01/27/25 16:37 Pulse Ox 99 01/27/25 16:37 O2 Del Method Room Air 01/27/25 16:37 BMI result Body Mass Index 41.9 Const: General: cooperative, no acute distress, alert and awake Nutritional Appearance: well nourished Orientation/consciousness: patient oriented x3 HEENT: Head: Yes normal to inspection and Yes atraumatic Ears: hearing grossly normal bilaterally and external ears normal General nose exam: Normal external nose present, no nasal discharge noted and no epistaxis Face and sinus: Yes normal facial exam, No abrasion and No laceration Mouth: Normal oral and palatal mucosa present, no drooling and no muffled voice Eyes: General: appearance normal, both eyes and all related structures Periorbital: periorbital findings normal Eyelids: Yes eyelids normal Conjunctivae: conjunctivae normal Pupils: Equal, round and reactive pupils present EOM: EOMs intact bilaterally Neck: Neck: Yes normal visual inspection and Yes full ROM Resp: Effort & Inspection: normal respiratory effort and able to speak in complete sentences Neuro: General: patient oriented x3, moves all extremities and CN's II-XI intact bilaterally Cranial nerves: Yes Equal, round and reactive pupils present Cognition (Neuro): normal cognition Extrem: General: Yes normal to inspection, Yes full ROM and Yes capillary refill normal Psych: Appearance: grossly normal Mental Status: mental status grossly normal Affect: normal affect Attitude: cooperative Thought process: Normal thought process present Thought content: Normal thought content present Insight: Good insight present (Psych) Course Course Course Narrative: This is an RME: Additional HPI, ROS, PE not included below will be deferred to primary provider. RME assessment and note performed by: Daphney Howard PA-C This is a [id number]-female who presents to the ER with a complaint of cough, congestion x 3 days. Plan: Viral swabs, CXR, further ER eval needed Medications Administered Discontinued Medications Generic Name Dose Route Start Last Admin Trade Name Freq PRN Reason Stop Dose Admin Ketorolac Tromethamine 15 mg 01/27/25 16:03 01/27/25 16:25 Ketorolac Tromethamine 15 Mg/Ml Vial IM 01/27/25 16:04 15 mg ONCE ONE Administration Medical Decision Making Medical Decision Making [facility] Narrative: Patient is a 54 year old female with a history of GERD and HTN presenting to the emergency department today with a cough, congestion, and headache. Patient's physical exam was as noted in the physical exam portion of this note. Patient's COVID-19 and RSV testing were negative. Patient's Influenza testing was positive. Patient's chest x-ray showed no acute process. I explained my physical exam findings as well as all test results to the patient and the patient's . I answered all questions asked by the patient and the patient's . Patient requested medication for the body aches and was given an IM injection of Toradol while in the department. I stressed the importance of the patient taking her medication as directed (either prescribed or as the over the counter packaging recommends). I stressed the importance of the patient following up with her primary care provider. I stressed the importance of the patient returning to the emergency department immediately if her symptoms were to worsen or if she were to develop any dizziness, shortness of breath, difficulty breathing, chest pain, blurry vision, loss of vision, nausea, vomiting, abdominal pain, fever, chills, back pain, or any other complaints. Patient and the patient's verbalized agreement and understanding with this treatment plan and discharge. Differential Diagnosis Differential Diagnoses: The differential diagnosis associated with the presentation includes Viral illness PNA Cough COVID-19 Influenza RSV Admission/Observation Consideration of admission/observation: Escalation of care including admission/observation considered Patient would have been admitted to the hospital had her work up had any findings where hospital admission was appropriate and her clinical presentation warranted hospital admission. Lab Data [facility] Lab Attestation statement: I reviewed the patient's lab results. My interpretation of these results are in the [facility] Rationale portion of this note. Labs: Lab Results 01/27/25 Range/Units 14:21 Influenza Type A (PCR) POSITIVE A (Negative) Influenza Type B (PCR) NEGATIVE (Negative) RSV RNA Qual (PCR) NEGATIVE (Negative) SARS-CoV-2 RNA (RT-PCR) NEGATIVE (Negative) S. pyogenes GrpA AARON Negative (Negative) Independent Interpretation I performed an independent interpretation of an: Plain X-Ray Interpretation: My interpretation is in agreement with the radiologist's impression of this imaging study as written below. EXAMINATION: XR CHEST CLINICAL INFORMATION: cough, congestion COMPARISON: 01/19/2022. TECHNIQUE: 2 views of the chest were obtained. FINDINGS: Borderline cardiac enlargement. Mediastinal and hilar contours appear normal. The lungs are clear bilaterally. There is no pneumothorax or pleural effusion. There is no focal osseous or soft tissue abnormality. There are cholecystectomy clips. XR/XR chest 2V IMPRESSION: No active pulmonary disease. Electronically signed by: Hugh Nino MD 01/27/2025 03:16 PM EST Dictated By: Hugh Nino MD Signed By: Electronically signed by Hugh Nino MD 01/27/25 1516 Radiology Impression Discussion of test interpretation with radiology: I have reviewed the radiologist's reading. Prescription Management I considered prescription management with: Antiviral (I considered prescribing tamiflu however, the patient's current clinical presentation did not warrant this. ) Discharge Plan Discharge Clinical Impression: Influenza Patient Disposition: Home, Self-Care Instructions: Influenza (DC) Additional Instructions: IF you are prescribed home medications and/or you are taking over the counter medications at home - it is very important you continue to do so as prescribed / directed unless told otherwise. SI le recetan medicamentos y/o est? tomando medicamentos de venta sudhakar, es muy importante que contin?e haci?ndolo seg?n lo recetado/indicado a menos que le i ndiquen lo contrario. Follow up with your primary care provider. Return to the emergency department immediately if your symptoms worsen or if you develop any dizziness, shortness of breath, difficulty breathing, chest pain, blurry vision, loss of vision, nausea, vomiting, abdominal pain, fever, chills, back pain, or any other complaints. Cosmo?seguimiento?con presley m?dico de atenci?n primaria. Acuda inmediatamente al servicio de urgencias si patsy s?ntomas empeoran o si presenta falta de aliento, dificultad para respirar, dolor tor?cico, mareos, aturdimiento, dolor de espalda, dolor abdominal, fiebre, escalofr?os o cualquier otro s?ntoma. If you do not have a primary care provider - call any of the below numbers to establish and follow up with a primary care provider. Si no tiene un proveedor de atenci?n primaria, llame a cualquiera de los n?meros que aparecen a continuaci?n para establecer y hacer seguimiento con un proveedor de atenci?n primaria. [facility] Primary Care ([place]) [phone] [facility] [place], [address] [facility] Primary Care ([address] [place]) [phone] [place] [address], [address] [facility], [address] [facility] Primary Care ([address] [place]) [phone] [place] [address], [address] [place], [address] [facility] Primary Care ([place]) [phone] [place] [address], [address] [facility], [address] [facility] Family Medicine [phone] [place] [address] [place], [address] Please see the information below about our Patient Portal. If you are not yet enrolled in the [facility] Patient Portal, you will receive an enrollment email invitation following your visit to any [facility] care setting. You may also self-enroll in the Patient Portal by visiting our website: [email or web address] The following information is required to access the Patient Portal: - Your [facility] Medical Record Number - Your personal home email address (must match what is in your electronic medical record, Registration staff can assist with this) - Name - Date of Capabilities of the Patient Portal: - Message some providers - View upcoming appointments - Access your health summary, medical history, and visit history - View current conditions and allergies - View procedure and lab results - View your medications, including guidelines, side effects, and precautions - Complete pre-appointment questionnaires requested by your provider - Ready summary reports of your office visits and procedures To access the Patient Portal Mobile Jory, follow these directions: - Search The [employer] website in the Jory Store or [employer] Store - Download the Jory - Search for [facility] - Enter your login/password Portal del paciente Si usted no esta inscrito en el portal de pacientes de [facility], recibira kary invitacion de inscripcion despues de presley visita al [facility] o al [facility] via correo electronico. Tambien puede inscribirse voluntariamente en el portal de pacientes visitando nuestra pagina web: [email or web address] La siguiente informacion sera requerida para acceder al portal: - Presley patricia de historia medica de HM - Presley direccion de correo electronico personal - Nombre - Fecha de nacimiento Capacidades: Las siguientes capacidades estan disponibles en el portal de pacientes: - Enviar mensajes a algunos doctores - Verificar proximas citas - Acceso a presley historial de mitchel, registro medico e historial de visitas - Alicia las condiciones actuales y alergias alicia procedimientos y resultados del laboratorio - Alicia patsy medicamentos, incluyendo las pautas - Efectos secundarios y precauciones - Completar o llenar formularios / cuestionarios de - Citas solicitadas por presley doctor - Leer los resumenes de reportes medicos de patsy visitas y procedimientos Cleve acceder a la aplicacion movil: - Consuelo [employer] en la Jory Store o [employer] Store - Descargue la aplicacion - [facility] - Ingrese presley nombre de usuario / Contrasena Prescriptions: No Action albuterol sulfate 90 mcg/actuation HFA aerosol inhaler 1 inh inhalation QID PRN (Reason: shortness of breath or wheezing) Qty: 8.5 0RF Paxlovid 300 mg (150 mg x 2)-100 mg tablets,dose pack See Rx Instructions PO .COMPLEX Qty: 15 0RF Rx Instructions: take TWO 150 mg tablets of nirmatrelvir with ONE 100 mg tablet of ritonavir twice daily for 5 days. Dip 15 pills meclizine 25 mg tablet 25 mg PO TID PRN (Reason: dizziness) Qty: 30 0RF ondansetron 4 mg tablet,disintegrating 4 mg PO Q8H PRN (Reason: nausea and vomiting) Qty: 20 0RF metoclopramide HCl [Reglan] 10 mg tablet 10 mg PO Q6H PRN (Reason: nausea and vomiting) Qty: 20 0RF Stand Alone Forms: Work/School Release Interventions: ED Discharge Assessment Last Done: 01/27/25 16:37 Discharge Date/Time: 01/27/25 16:37 Print Language: Singaporean
[2025-01-27 14:39] LABS: IDNOW Serial# 58CA691E
[2025-01-27 14:40] LABS: Strep A Nucleic Acid Negative (Negative)
[2025-01-27 15:08] LABS: Resp Syncy Virus RNA Qual PCR NEGATIVE (Negative); SARS COV2 PCR INHOUSE NEGATIVE (Negative)
[2025-01-27 16:37] VITALS: BP 136/70; PULSE 82; RESP 18; TEMP 36.5; O2SAT 99
--- OUTSIDE RECORDS SUMMARY | 2025-01-27 23:16 | XMS_ITS | Clinical Summary ---
Author Organization [employer] [facility] Address [address] [place] [address] Care Team Providers Care Front Facer Name Role Phone Unavailable Primary Care Provider Unavailabl e Surgical History Surgery Date Site/Laterality Comments CARDIAC SURGERY PROCEDURE: HISTORICAL HEART SURGERY(ASD,VSD,VALVES); COMMENT: heart murmur surgery SECTION PROCEDURE: HISTORICAL CHOLECYSTECTOMY PROCEDURE: [place] LAPAROSCOPY SURG CHOLECYSTECTOMY Medical History Medical History Date Comments Essential hypertension DX:Essent ial hypertension Rheumatic heart disease DX:Rheum atic heart disease; COMMENT: patient reports this diagnosis of this as a child, does not know age Social History Tobacco Use Types Packs/Day Years Used Date Smoking Tobacco: Never Smokeless Tobacco: Never Alcohol Use Standard Drinks/Week Comments Never 0 (1 standard drink = 0.6 oz pur e alcohol) Comments Unknown Sex and Gender Information Value Date Recorded Sex Assigned at Not on file Legal Sex Female 2:18 PM EST Gender Identity Not on file Sexual Orientation Not on file Plan of Treatment Health Maintenance Due Date Last Done Comments Breast Cancer Screening 1970 Colorectal Cancer Screening: Colonoscopy 1970 DTaP,Tdap,and Td Vaccines (1 - Tdap) 1989 Hepatitis B Vaccines (1 of 3 - 19+ 3-dose series) 1989 Cervical Cancer Screening: P ap Smear 1991 Pneumococcal Vaccine: 50+ Ye ars (1 of 1 - PCV) 02/13/2020 Zoster Vaccines (1 of 2) 02/13/2020 HIV Screening 01/16/2022 Hepatitis C Screening 01/16/2022 Social Influencers of Health Screening 01/16/2022 Depression Screening 02/18/2024 COVID-19 Vaccine (1 - 2024-2 6 season) 2024 Influenza Vaccine (#1) 2024 RSV Immunization Adult Patie nts (1 - 1-dose 75+ series) 2045 HIB Vaccines Aged Out No longer eligi ble based on patient's age to complete this topic HPV Vaccines Aged Out No longer eligi ble based on patient's age to complete this topic Hepatitis A Vaccines Aged Out No long er eligible based on patient's age to complete this topic IPV Vaccines Aged Out No longer eligi ble based on patient's age to complete this topic MMR Vaccines Aged Out No longer eligi ble based on patient's age to complete this topic Meningococcal ACWY Vaccine Aged Out N o longer eligible based on patient's age to complete this topic Meningococcal B Vaccine Aged Out No l onger eligible based on patient's age to complete this topic RSV Immunization Patients Un boni 20 months Aged Out No longer eligible b ased on patient's age to complete this topic Varicella Vaccines Aged Out No longer eligible based on patient's age to complete this topic
== END 2025-01-27 16:37 | disposition home or self-care (01) ==
PROVIDERS: Physician Assistant Medical; Emergency Provider Emergency Medicine
DX: J10.1 Influenza due to other identified influenza virus with other respiratory manifestations (principal); R05.9 Cough, unspecified; R09.89 Other specified symptoms and signs involving the circulatory and respiratory systems; R09.81 Nasal congestion; Z03.818 Encounter for observation for suspected exposure to other biological agents ruled out
CPT/HCPCS: 71046; 87637; 87651; 96372; 99283; 99284; J1885

== ENCOUNTER → 2025-01-27 14:16 | Outpatient (BNV) | payer OTHER, SELFPAY | PROVIDERS: Emergency Provider Emergency Medicine; Visit Provider Radiology Diagnostic Radiology | DX: R05.9 Cough, unspecified (principal); R09.89 Other specified symptoms and signs involving the circulatory and respiratory systems | CPT/HCPCS: 71046 ==